=== PATIENT | female | born 1940 | race Caucasian/White ===

== ENCOUNTER → 2016-10-04 | Outpatient (REF) | payer MEDICARE, OTHER, MEDICAID ==
[~2016-10-04] MED LIST: AMLO10TA2 PO; Amlodipine Besylate PO; DRIS50002 PO; FURO40TA2 PO; GLIP5TAB8 PO; GUAI20TA PO; INSULANT SC; LOVA10TA PO; METO50TA2 PO; NEUR100C PO; NORC5TAB PO; ROCA0.25 PO; TESS100C PO
[2016-10-04 14:01] LABS: BASO % 0.4 % (0.0-1.0); EOS # 0.2 K/mm3 (0.0-0.50); LARGE UNSTAINED CELL # 0.2 K/mm3 (0.0-0.4); LARGE UNSTAINED CELL % 3.1 % (0.0-4.0); LYMPH # 1.9 K/mm3 (1.5-4.5); LYMPH % 31.4 % (24.0-44.0); MEAN CORPUSCULAR HEMOGLOBIN 29.6 pg (27.0-33.0); MEAN CORPUSCULAR HGB CONC 31.8 g/dl (32.0-36.5); MEAN CORPUSCULAR VOLUME 93.1 fl (80.0-96.0); MONO # 0.3 K/mm3 (0.0-0.8); MONO % 5.4 % (0.0-5.0); NEUTROPHILS # 3.4 K/mm3 (1.8-7.7); NEUTROPHILS % 56.7 % (36.0-66.0); PLATELET COUNT, AUTOMATED 220 k/mm3 (150-450); RED CELL DISTRIBUTION WIDTH 12.6 % (11.5-14.5); WHITE BLOOD COUNT 6.1 K/mm3 (4.0-10.0)
[2016-10-04 14:28] LABS: ALBUMIN 3.4 GM/DL (3.2-5.2); ALBUMIN/GLOBULIN RATIO 1.06 (1.00-1.93); BILIRUBIN,TOTAL 0.4 MG/DL (0.2-1.0); CALCIUM LEVEL 8.9 MG/DL (8.8-10.2); CREATININE FOR GFR 2.8 MG/DL (0.55-1.02); GLOMERULAR FILTRATION RATE 17.6 (>39); POTASSIUM SERUM 4.7 MEQ/L (3.5-5.1); TOTAL PROTEIN 6.6 GM/DL (6.4-8.2)
== END ==
LOC: M LABSMT 13:05
PROVIDERS: ATTEND Family Medicine
DX: E11.22 Type 2 diabetes mellitus with diabetic chronic kidney disease (principal); E78.5 Hyperlipidemia, unspecified; N18.4 Chronic kidney disease, stage 4 (severe); I12.9 Hypertensive chronic kidney disease with stage 1 through stage 4 chronic kidney disease, or unspecified chronic kidney disease

== ENCOUNTER → 2016-10-14 | Outpatient (CLI) | payer MEDICARE, OTHER, MEDICAID | LOC: M RAD 14:08 | PROVIDERS: ATTEND Physician Assistant | DX: Z00.00 Encounter for general adult medical examination without abnormal findings (principal); Z53.8 Procedure and treatment not carried out for other reasons ==

== ENCOUNTER → 2016-10-28 | Outpatient (CLI) | payer MEDICARE, OTHER, MEDICAID ==
--- NOTE | 2016-10-28 10:38 | REP ---
DUPLEX CAROTID SONOGRAPHY: HISTORY: Hypertension. Right hand tingling. Signs and symptoms involving the circulatory and respiratory system. FINDINGS: The vertebral arteries could not be identified, thus flow cannot be confirmed in the vertebral arteries. The exam is quite limited due to patient body habitus and high carotid bifurcation. Respiratory motion with a factor. RIGHT CAROTID: The right common carotid artery shows some mild mixed plaquing distally. There is almost circumferential plaquing in the bulb, proximal ICA and proximal ECA on the right side. Color flow and spectral Doppler interrogation shows no abnormal wave form or velocity. Velocity Chart Right Carotid: PSV EDV Right CCA 111 cm/s Right ICA 15 cm/s 6 cm/s Right ECA 97 cm/s Right ICA/CCA ratio normal 0.13. Right ICA velocities are felt to be spuriously low due to technical difficulties described above and less than optimal vessel angle. LEFT CAROTID: There is mild to moderate diffuse plaquing in the distal common carotid artery, bulb, ICA and ECA. Color flow and spectral Doppler interrogation are similar to the right side including the relatively spurious low flow velocities seen in the ICA. Velocity Chart Left Carotid: PSV EDV Left CCA 128 cm/s Left ICA 17 cm/s 6 cm/s Left ECA 192 cm/s Left ICA/CCA ratio 0.13. IMPRESSION: Technically limited study. Neither vertebral artery could be documented. There is mild to moderate mixed plaquing bilaterally. Doppler data less than optimal. No evidence of high-grade stenosis on either side. Signed by Miguel A Fisher MD 10/28/2016 01:30 P
--- NOTE | 2016-10-28 11:25 | REP ---
ABDOMINAL AORTIC SONOGRAPHY: HISTORY: Abnormal findings on medical exam. Comparison CT study of the abdomen and pelvis is from October 22, 2014. FINDINGS: Exam quality is inhibited by patient body habitus and overlying bowel gas to some degree. The abdominal aorta, however, is not aneurysmal measuring 1.9 x 2.2 cm in AP x transverse dimension at the diaphragmatic hiatus. The aorta tapers to 1.8 cm AP x 2.7 cm medial to lateral at the distal aorta. The right and left common iliac arteries are normal measuring 0.96 and 0.93 cm in AP dimension respectively. No aortic aneurysm or periaortic disease is seen. IMPRESSION: No evidence of abdominal aortic aneurysm seen. Signed by Miguel A Fisher MD 10/28/2016 01:30 P
== END ==
LOC: M RAD 07:36
PROVIDERS: ATTEND Physician Assistant
DX: Z00.00 Encounter for general adult medical examination without abnormal findings (principal); R09.89 Other specified symptoms and signs involving the circulatory and respiratory systems

== ENCOUNTER → 2017-01-04 | Outpatient (CLI) | payer MEDICARE, OTHER, MEDICAID ==
[~2017-01-04] MED LIST changes: +NORC1TAB4 PO; -NORC5TAB PO
[2017-01-04 13:51] LABS: BASO % 0.4 % (0.0-1.0); EOS # 0.2 K/mm3 (0.0-0.50); EOS % 3.8 % (0.0-3.0); LARGE UNSTAINED CELL # 0.1 K/mm3 (0.0-0.4); LARGE UNSTAINED CELL % 2.2 % (0.0-4.0); LYMPH # 1.6 K/mm3 (1.5-4.5); LYMPH % 26.8 % (24.0-44.0); MEAN CORPUSCULAR HEMOGLOBIN 31.1 pg (27.0-33.0); MEAN CORPUSCULAR HGB CONC 32.9 g/dl (32.0-36.5); MEAN CORPUSCULAR VOLUME 94.4 fl (80.0-96.0); MONO # 0.3 K/mm3 (0.0-0.8); MONO % 5.4 % (0.0-5.0); NEUTROPHILS # 3.6 K/mm3 (1.8-7.7); NEUTROPHILS % 61.4 % (36.0-66.0); PLATELET COUNT, AUTOMATED 188 k/mm3 (150-450); RED CELL DISTRIBUTION WIDTH 13.3 % (11.5-14.5); WHITE BLOOD COUNT 5.8 K/mm3 (4.0-10.0)
[2017-01-04 13:59] LABS: ALBUMIN 3.5 GM/DL (3.2-5.2); ALBUMIN/GLOBULIN RATIO 1.13 (1.00-1.93); BILIRUBIN,TOTAL 0.4 MG/DL (0.2-1.0); CALCIUM LEVEL 8.8 MG/DL (8.8-10.2); CREATININE FOR GFR 2.29 MG/DL (0.55-1.02); FREE T4 1.39 NG/DL (0.76-1.46); GLOMERULAR FILTRATION RATE 22.1 (>39); POTASSIUM SERUM 4.7 MEQ/L (3.5-5.1); TOTAL PROTEIN 6.6 GM/DL (6.4-8.2)
== END ==
LOC: M SMT 09:23
PROVIDERS: ATTEND Physician Assistant
DX: I10 Essential (primary) hypertension (principal); E11.9 Type 2 diabetes mellitus without complications

== ENCOUNTER → 2017-02-10 | Outpatient (REF) | payer MEDICARE, OTHER, MEDICAID | LOC: M LAB REF 12:54 | PROVIDERS: ATTEND Internal Medicine Nephrology | DX: N39.0 Urinary tract infection, site not specified (principal) ==

== ENCOUNTER → 2017-04-13 | Outpatient (CLI) | payer MEDICARE, OTHER, MEDICAID ==
[~2017-04-13] MED LIST changes: -METO50TA2 PO; +METO50TA7 PO
[2017-04-13 13:49] LABS: ALBUMIN 3.3 GM/DL (3.2-5.2); ALBUMIN/GLOBULIN RATIO 1.03 (1.00-1.93); BILIRUBIN,TOTAL 0.4 MG/DL (0.2-1.0); CALCIUM LEVEL 8.9 MG/DL (8.8-10.2); CREATININE FOR GFR 2.74 MG/DL (0.55-1.02); POTASSIUM SERUM 4.5 MEQ/L (3.5-5.1); TOTAL PROTEIN 6.5 GM/DL (6.4-8.2)
[2017-04-13 14:00] LABS: BASO % 0.6 % (0.0-1.0); EOS # 0.2 K/mm3 (0.0-0.50); EOS % 2.9 % (0.0-3.0); LARGE UNSTAINED CELL # 0.1 K/mm3 (0.0-0.4); LARGE UNSTAINED CELL % 2.4 % (0.0-4.0); LYMPH # 1.7 K/mm3 (1.5-4.5); LYMPH % 29.3 % (24.0-44.0); MEAN CORPUSCULAR HEMOGLOBIN 31.1 pg (27.0-33.0); MEAN CORPUSCULAR HGB CONC 33.3 g/dl (32.0-36.5); MEAN CORPUSCULAR VOLUME 93.4 fl (80.0-96.0); MONO # 0.3 K/mm3 (0.0-0.8); MONO % 5.3 % (0.0-5.0); NEUTROPHILS # 3.5 K/mm3 (1.8-7.7); NEUTROPHILS % 59.4 % (36.0-66.0); PLATELET COUNT, AUTOMATED 184 k/mm3 (150-450); RED CELL DISTRIBUTION WIDTH 13.2 % (11.5-14.5); WHITE BLOOD COUNT 5.9 K/mm3 (4.0-10.0)
== END ==
LOC: M SMT 08:31
PROVIDERS: ATTEND Family Medicine
DX: E11.22 Type 2 diabetes mellitus with diabetic chronic kidney disease (principal)

== ENCOUNTER → 2017-07-11 | Outpatient (CLI) | payer MEDICARE, OTHER, MEDICAID ==
[2017-07-11 14:05] LABS: BASO % 0.4 % (0.0-1.0); EOS # 0.2 10^3/uL (0.0-0.50); IMMATURE GRANULOCYTE % 0.3 % (0-0); LYMPH # 2.2 10^3/uL (1.5-4.5); LYMPH % 29.3 % (24.0-44.0); MEAN CORPUSCULAR HEMOGLOBIN 30.9 pg (27.0-33.0); MEAN CORPUSCULAR HGB CONC 32.2 g/dl (32.0-36.5); MEAN CORPUSCULAR VOLUME 96.2 fl (80.0-96.0); MONO # 0.5 10^3/uL (0.0-0.8); MONO % 7.3 % (0.0-5.0); NEUTROPHILS # 4.4 10^3/uL (1.8-7.7); NEUTROPHILS % 59.7 % (36.0-66.0); PLATELET COUNT, AUTOMATED 222 10^3/uL (150-450); RED CELL DISTRIBUTION WIDTH 12.5 % (11.5-14.5); WHITE BLOOD COUNT 7.4 10^3/uL (4.0-10.0)
[2017-07-11 14:41] LABS: ALBUMIN 3.5 GM/DL (3.2-5.2); ALBUMIN/GLOBULIN RATIO 1.06 (1.00-1.93); BILIRUBIN,TOTAL 0.4 MG/DL (0.2-1.0); CALCIUM LEVEL 9.3 MG/DL (8.8-10.2); CREATININE FOR GFR 2.46 MG/DL (0.55-1.02); GLOMERULAR FILTRATION RATE 20.4 (>39); POTASSIUM SERUM 4.2 MEQ/L (3.5-5.1); TOTAL PROTEIN 6.8 GM/DL (6.4-8.2)
== END ==
LOC: M SMT 08:59
PROVIDERS: ATTEND Family Medicine
DX: E11.22 Type 2 diabetes mellitus with diabetic chronic kidney disease (principal); E78.5 Hyperlipidemia, unspecified

== ENCOUNTER → 2017-10-10 | Outpatient (CLI) | payer MEDICARE, OTHER, MEDICAID ==
[2017-10-10 14:30] LABS: ALBUMIN 3.4 GM/DL (3.2-5.2); ALKALINE PHOSPHATASE 57 U/L (45-117); ALT/SGPT 15 U/L (12-78); ANION GAP 10 MEQ/L (8-16); AST/SGOT 13 U/L (7-37); BILIRUBIN,TOTAL 0.4 MG/DL (0.2-1.0); BLOOD UREA NITROGEN 40 MG/DL (7-18); CARBON DIOXIDE LEVEL 29 MEQ/L (21-32); CHLORIDE LEVEL 105 MEQ/L (98-107); CREATININE FOR GFR 2.27 MG/DL (0.55-1.30); GLOMERULAR FILTRATION RATE 22.3 (>39); GLUCOSE, FASTING 85 MG/DL (70-100); POTASSIUM SERUM 4.5 MEQ/L (3.5-5.1); SODIUM LEVEL 144 MEQ/L (136-145); TOTAL PROTEIN 6.5 GM/DL (6.4-8.2)
[2017-10-10 15:06] LABS: ESTIMATED AVERAGE GLUCOSE 146 MG/DL (60-110); HEMOGLOBIN A1c 6.7 %
== END ==
LOC: M SMT 08:03
DX: E11.22 Type 2 diabetes mellitus with diabetic chronic kidney disease (principal)
CPT/HCPCS: 80053

== ENCOUNTER 2017-12-03 11:06 | Emergency (ER) | payer MEDICARE, OTHER, MEDICAID ==
[2017-12-03] MEDS: traMADol 50 MG TAB PO (11:53)
[2017-12-03 12:15] LABS: BASO % 0.2 % (0.0-1.0); EOS # 0.2 10^3/uL (0.0-0.50); EOS % 2.2 % (0.0-3.0); HEMATOCRIT 38.4 % (36.0-47.0); HEMOGLOBIN 12.8 g/dl (12.0-15.5); IMMATURE GRANULOCYTE % 0.5 % (0-3.0); LYMPH # 1.5 10^3/uL (1.5-4.5); LYMPH % 17.6 % (24.0-44.0); MEAN CORPUSCULAR HEMOGLOBIN 30.6 pg (27.0-33.0); MEAN CORPUSCULAR HGB CONC 33.3 g/dl (32.0-36.5); MEAN CORPUSCULAR VOLUME 91.9 fl (80.0-96.0); MONO # 0.8 10^3/uL (0.0-0.8); MONO % 8.7 % (0.0-5.0); NEUTROPHILS # 6.1 10^3/uL (1.8-7.7); NEUTROPHILS % 70.8 % (36.0-66.0); PLATELET COUNT, AUTOMATED 214 10^3/uL (150-450); RED BLOOD COUNT 4.18 10^6/uL (4.00-5.40); WHITE BLOOD COUNT 8.6 10^3/uL (4.0-10.0)
[2017-12-03 12:44] LABS: ANION GAP 8 MEQ/L (8-16); BLOOD UREA NITROGEN 51 MG/DL (7-18); C REACTIVE PROTEIN QUANTITATIV 1.69 MG/DL (0.00-0.30); CALCIUM LEVEL 8.5 MG/DL (8.8-10.2); CARBON DIOXIDE LEVEL 25 MEQ/L (21-32); CHLORIDE LEVEL 108 MEQ/L (98-107); CREATININE FOR GFR 2.28 MG/DL (0.55-1.30); GLOMERULAR FILTRATION RATE 22.2 (>39); GLUCOSE, FASTING 129 MG/DL (70-100); POTASSIUM SERUM 4.2 MEQ/L (3.5-5.1); SODIUM LEVEL 141 MEQ/L (136-145); URIC ACID 10.2 MG/DL (2.6-6.0)
[2017-12-03 13:16] LABS: ERYTHROCYTE SEDIMENTATION RATE 53 mm/hr (0-30)
[2017-12-03] MEDS: COLCHICINE 0.6 MG TAB PO ×2 (13:45→13:46)
== END 2017-12-03 13:48 | disposition home or self-care (01) ==
LOC: M ED 11:06
DX: M10.072 Idiopathic gout, left ankle and foot (principal); I12.9 Hypertensive chronic kidney disease with stage 1 through stage 4 chronic kidney disease, or unspecified chronic kidney disease; E11.9 Type 2 diabetes mellitus without complications; E78.00 Pure hypercholesterolemia, unspecified; N18.9 Chronic kidney disease, unspecified; M54.5 Low back pain; Z87.442 Personal history of urinary calculi; Z79.899 Other long term (current) drug therapy; Z79.4 Long term (current) use of insulin
CPT/HCPCS: 73630

== ENCOUNTER → 2018-03-21 | Outpatient (REF) | payer MEDICARE, OTHER ==
[2018-03-21 14:17] LABS: ALBUMIN 3.3 GM/DL (3.2-5.2); ALBUMIN/GLOBULIN RATIO 0.92 (1.00-1.93); ALKALINE PHOSPHATASE 75 U/L (45-117); ALT/SGPT 24 U/L (12-78); ANION GAP 9 MEQ/L (8-16); AST/SGOT 16 U/L (7-37); BILIRUBIN,TOTAL 0.3 MG/DL (0.2-1.0); BLOOD UREA NITROGEN 52 MG/DL (7-18); CALCIUM LEVEL 8.9 MG/DL (8.8-10.2); CARBON DIOXIDE LEVEL 28 MEQ/L (21-32); CHLORIDE LEVEL 105 MEQ/L (98-107); CHOLESTEROL LEVEL 189 MG/DL (<200); CREATININE FOR GFR 2.57 MG/DL (0.55-1.30); FREE T4 1.22 NG/DL (0.76-1.46); GLOMERULAR FILTRATION RATE 19.3 (>39); GLUCOSE, FASTING 123 MG/DL (70-100); HDL CHOLESTEROL 54 MG/DL (>40); LDL CHOLESTEROL 104.2 MG/DL (<100); NON-HDL-C 135 MG/DL; POTASSIUM SERUM 4.6 MEQ/L (3.5-5.1); SODIUM LEVEL 142 MEQ/L (136-145); TOTAL PROTEIN 6.9 GM/DL (6.4-8.2); TRIGLYCERIDES LEVEL 154 MG/DL (<150)
[2018-03-21 14:31] LABS: ESTIMATED AVERAGE GLUCOSE 194 MG/DL (60-110); HEMOGLOBIN A1c 8.4 %
== END ==
LOC: M LABSMT 13:21
DX: N18.4 Chronic kidney disease, stage 4 (severe) (principal); E78.5 Hyperlipidemia, unspecified; E11.22 Type 2 diabetes mellitus with diabetic chronic kidney disease
CPT/HCPCS: 84443

== ENCOUNTER → 2018-03-22 | Outpatient (CLI) | payer MEDICARE, OTHER, MEDICAID | LOC: M RAD 13:03 | DX: Z01.818 Encounter for other preprocedural examination (principal); N18.6 End stage renal disease | CPT/HCPCS: G0365 ==

== ENCOUNTER 2018-05-11 11:33 | Day surgery (SDC) | payer MEDICARE, OTHER, MEDICAID ==
[2018-05-11 12:42] LABS: BEDSIDE GLUCOSE 157 MG/DL (83-110)
[2018-05-11 12:59] LABS: POTASSIUM SERUM 4.3 MEQ/L (3.5-5.1)
[2018-05-11] MEDS ORDERED: PROPOFOL 200 MG/20 ML VIAL As Ordered (13:04)
[2018-05-11] MEDS ORDERED: LIDOCAINE 2% INJ 100 MG/5 ML SDV (FOR ANES.) As Ordered (13:04)
[2018-05-11] MEDS ORDERED: MIDAZOLAM INJ 2 MG/2 ML VIAL (J2250) As Ordered (14:50)
[2018-05-11] MEDS ORDERED: fentaNYL 100 MCG/2 ML INJECTION (J3010) As Ordered (14:51)
[2018-05-11] MEDS: HEPARIN SOD (PORCINE) 5000 UNITS/ML VIAL As Ordered (16:00)
[2018-05-11] MEDS ORDERED: HEPARIN SOD (PORCINE) 5000 UNITS/ML VIAL As Ordered (16:18)
[2018-05-11] MEDS: BUPIVACAINE HCL 0.5% 30 ML VIAL As Ordered (17:00)
[2018-05-11] MEDS: LIDOCAINE 1% SDV INJ 30 ML VIAL As Ordered (17:00)
[2018-05-11] MEDS ORDERED: D5W/0.2% SODIUM CHLORIDE 1,000 ML IV (18:00)
[2018-05-11] MEDS ORDERED: fentaNYL 100 MCG/2 ML INJECTION (J3010) IV (18:15)
[2018-05-11] MEDS ORDERED: HYDROMORPHONE HCL 0.5 MG/ 0.5 ML SYRINGE (J1170 PER 1) IV (18:15)
[2018-05-11] MEDS ORDERED: ONDANSETRON 4MG/2ML VIAL (J2405) IV (18:15)
[2018-05-11 18:22] LABS: BEDSIDE GLUCOSE 176 MG/DL (83-110)
[2018-05-11] MEDS: PERCOCET 5MG/325MG TAB PO (18:30)
== END 2018-05-11 19:43 | disposition home or self-care (01) ==
LOC: M SDC 11:33
DX: N18.9 Chronic kidney disease, unspecified (principal); I12.9 Hypertensive chronic kidney disease with stage 1 through stage 4 chronic kidney disease, or unspecified chronic kidney disease; I50.32 Chronic diastolic (congestive) heart failure; J44.9 Chronic obstructive pulmonary disease, unspecified; E11.22 Type 2 diabetes mellitus with diabetic chronic kidney disease; E78.00 Pure hypercholesterolemia, unspecified; M10.9 Gout, unspecified; R29.898 Other symptoms and signs involving the musculoskeletal system; M12.9 Arthropathy, unspecified; R06.02 Shortness of breath; R32 Unspecified urinary incontinence; T88.59XD Other complications of anesthesia, subsequent encounter; Z79.899 Other long term (current) drug therapy; Z78.0 Asymptomatic menopausal state; Z98.51 Tubal ligation status; Z87.442 Personal history of urinary calculi; Z96.1 Presence of intraocular lens
CPT/HCPCS: 36821

== ENCOUNTER → 2018-05-24 | Outpatient (CLI) | payer MEDICARE, OTHER, MEDICAID | LOC: M RAD 11:25 | DX: I65.23 Occlusion and stenosis of bilateral carotid arteries (principal) | CPT/HCPCS: 93880 ==

== ENCOUNTER → 2018-07-24 | Outpatient (REF) | payer MEDICARE, OTHER, MEDICAID | LOC: M LAB REF 17:19 | DX: N39.0 Urinary tract infection, site not specified (principal) | CPT/HCPCS: 87186 ==

== ENCOUNTER → 2019-01-05 | Outpatient (CLI) | payer MEDICARE, OTHER, MEDICAID ==
[~2019-01-05] MED LIST changes: +ALLO100T PO; -AMLO10TA2 PO; +AMLO10TA5 PO; +COLA100C5 PO; -DRIS50002 PO; +DRIS50003 PO; +FISH1000 PO; +FISH100049 PO; +GUAI400T9 PO; +HYDR10TAB PO; +MUPI2OI EXT; -NORC1TAB4 PO; +NORC1TAB7 PO; +TYLE500T78 PO; +ULTR50TA8 PO
--- NOTE | 2019-01-05 18:30 | REP ---
Bilateral upper extremity arterial and venous Doppler ultrasound: History: End-stage renal disease. Vein mapping study. Findings: There is no evidence of venous thrombosis in either upper extremity on compression and Doppler ultrasound. There is a fistula between the brachial artery in the left axillary vein. This appears to be occluded. There is evidence of a left distal brachial masses, high-grade. This has associated with a reversal of flow in the ulnar artery. Right upper extremity vein diameter chart: Upper humerus basilic 3.1 mm, cephalic 2.6 mm Mid humerus basilic 3.2 mm, cephalic 2.7 mm Lower humerus basilic 2.6 mm, cephalic 2.9 mm Upper forearm basilic 1.4 mm, cephalic 1.3 mm Lower to mid forearm basilic 1.8 mm, cephalic 1.2 mm Wrist basilic not seen, cephalic 1.3 mm Median cubital 2 mm Left upper extremity vein diameter chart: Upper humerus basilic 2.8 mm, cephalic 1.7 mm Mid humerus basilic 2.5 mm, cephalic and millimeters Lower humerus basilic 1.8 mm cephalic not seen Upper forearm basilic 1.2 mm cephalic not seen Mid forearm basilic 1.3 mm, cephalic not seen Wrist basilic 0.6 mm, cephalic not seen Right upper extremity arterial Doppler velocity and size diameter chart: Axillary artery 71.6 cm/S, 5.5 mm Brachial artery 60.2 cm/S, 4.0 mm Radial artery 89.6 cm/S, 2.1 mm Ulnar artery 57.9 cm/S, 3.2 mm Left upper extremity arterial Doppler velocity and size diameter chart: Axillary artery 32 0.1 cm/S, 5.2 mm Brachial artery 38.5 cm/S, 4.0 mm Radial artery 21.5 cm/S, 2.3 mm Ulnar artery 12.0 cm/S, 2.4 mm reversed flow. Electronically Signed by Miguel A Fisher MD 01/05/2019 06:22 P
== END ==
LOC: M RAD 13:10
PROVIDERS: ATTEND Surgery Vascular Surgery
DX: Z01.818 Encounter for other preprocedural examination (principal); N18.6 End stage renal disease

== ENCOUNTER 2019-01-20 08:08 | Emergency (ER) | payer MEDICARE, OTHER, MEDICAID ==
[~2019-01-20] VITALS: Ht 149.9 cm; Wt 112.1 kg
[2019-01-20 09:17] LABS: BASO % 0.3 % (0.0-1.0); EOS # 0.2 10^3/uL (0.0-0.50); EOS % 3.4 % (0.0-3.0); HEMATOCRIT 38.8 % (36.0-47.0); HEMOGLOBIN 12.8 g/dl (12.0-15.5); LYMPH # 1.9 10^3/uL (1.5-4.5); LYMPH % 28.6 % (24.0-44.0); MEAN CORPUSCULAR HEMOGLOBIN 32.5 pg (27.0-33.0); MEAN CORPUSCULAR VOLUME 98.5 fl (80.0-96.0); MONO # 0.6 10^3/uL (0.0-0.8); MONO % 8.4 % (0.0-5.0); PLATELET COUNT, AUTOMATED 190 10^3/uL (150-450); RED BLOOD COUNT 3.94 10^6/uL (4.00-5.40); WHITE BLOOD COUNT 6.8 10^3/uL (4.0-10.0)
[2019-01-20 09:40] LABS: CALCIUM LEVEL 8.9 MG/DL (8.8-10.2); CREATININE FOR GFR 2.42 MG/DL (0.55-1.30); GLOMERULAR FILTRATION RATE 20.6 (>39); POTASSIUM SERUM 4.4 MEQ/L (3.5-5.1)
--- NOTE | 2019-01-20 10:27 | REP ---
Clinical: Status post fistula placement . Technique: Garcia scale and color Doppler evaluation using linear high frequency transducer. Findings: Ultrasound examination of the right upper extremity including visualized jugular, subclavian, axillary, brachial, cephalic, and basilic veins demonstrate normal flow and wave patterns. There is no evidence for deep venous thrombosis. Impression: No evidence for deep venous thrombosis involving the right upper extremity. . Electronically Signed by Joe Prescott MD 01/20/2019 10:19 A
--- NOTE | 2019-01-20 10:51 | REP ---
Clinical: Status post AV fistula day one right hand weakness/numbness. Technique: Real time garcia scale and color Doppler evaluation of the right upper extremity arterial vasculature using linear high frequency transducer. Findings: Garcia scale and color images demonstrate normal laminar flow through the poarch visualized subclavian, axillary, and brachial arteries with monophasic arterial wave patterns and relatively normal velocities. The AV fistula between brachial artery and cephalic vein demonstrates turbulent flow with increased velocities and spectral broadening with normal laminar flow in the distal cephalic vein demonstrating appropriate venous wave patterns and flow direction. The arterial structures distal to the fistula including radial and ulnar arteries demonstrate monophasic wave patterns with loss of diastolic flow and significantly decreased velocities which may reflect steal syndrome versus transient postoperative changes. Peak systolic velocities (cm/sec) RIGHT Right subclavian artery 129 cm/sec Axillary artery 181 cm/sec Brachial artery 227 cm/sec Brachial cephalic AV fistula Brachial anastomoses 594 cm/sec Mid fistula 552 cm/sec Cephalic anastomoses 410 cm/sec Radial artery 23 cm/sec Ulnar artery 15 cm/sec Impression: Findings detailed above. Decreased velocity with lack of diastolic flow in the radial and ulnar arteries distal to the level of the fistula. Differential diagnosis would include steal syndrome as well as transient postoperative changes. Electronically Signed by Joe Prescott MD 01/20/2019 10:42 A
[2019-01-20 11:31] VITALS: BP 95/53
--- NOTE | 2019-01-21 06:36 | ED PDOC ---
Post-Departure Follow-Up osmin figueroa, and oracio faxed formal report of rue arterial study for Christal Richardson MD January 21, 2019 06:36
== END 2019-01-20 11:32 | disposition home or self-care (01) ==
LOC: M ED 08:08
DX: T82.590A Other mechanical complication of surgically created arteriovenous fistula, initial encounter (principal); Y73.2 Prosthetic and other implants, materials and accessory gastroenterology and urology devices associated with adverse incidents; R20.0 Anesthesia of skin; R20.2 Paresthesia of skin; I77.0 Arteriovenous fistula, acquired; N18.9 Chronic kidney disease, unspecified; E11.29 Type 2 diabetes mellitus with other diabetic kidney complication; I12.9 Hypertensive chronic kidney disease with stage 1 through stage 4 chronic kidney disease, or unspecified chronic kidney disease; Z79.899 Other long term (current) drug therapy; Z79.4 Long term (current) use of insulin

== ENCOUNTER → 2019-01-26 | Outpatient (REF) | payer MEDICARE, OTHER, MEDICAID | LOC: M LAB REF 13:08 | PROVIDERS: ATTEND Internal Medicine Nephrology | DX: I95.9 Hypotension, unspecified (principal) ==

== ENCOUNTER 2019-02-04 21:29 | Emergency (ER) | payer MEDICARE, OTHER, MEDICAID ==
[~2019-02-04] VITALS: Ht 149.9 cm; Wt 111.8 kg
[2019-02-04 22:14] LABS: BASO % 0.4 % (0.0-1.0); EOS # 0.3 10^3/uL (0.0-0.50); EOS % 3.8 % (0.0-3.0); HEMATOCRIT 40.1 % (36.0-47.0); LYMPH # 2.4 10^3/uL (1.5-4.5); LYMPH % 31.7 % (24.0-44.0); MEAN CORPUSCULAR HEMOGLOBIN 32.3 pg (27.0-33.0); MEAN CORPUSCULAR HGB CONC 32.4 g/dl (32.0-36.5); MEAN CORPUSCULAR VOLUME 99.8 fl (80.0-96.0); MONO # 0.7 10^3/uL (0.0-0.8); MONO % 9.5 % (0.0-5.0); NEUTROPHILS # 4.2 10^3/uL (1.8-7.7); NEUTROPHILS % 54.3 % (36.0-66.0); RED BLOOD COUNT 4.02 10^6/uL (4.00-5.40); WHITE BLOOD COUNT 7.7 10^3/uL (4.0-10.0)
[2019-02-04] MEDS ORDERED: FUROSEMIDE 100 MG/10 ML VIAL (J1940) IV ONE (23:30)
[2019-02-05 00:09] LABS: CALCIUM LEVEL 8.7 MG/DL (8.8-10.2); CREATININE FOR GFR 2.23 MG/DL (0.55-1.30); GLOMERULAR FILTRATION RATE 22.7 (>39); POTASSIUM SERUM 4.5 MEQ/L (3.5-5.1)
[2019-02-05 00:16] VITALS: BP 107/66
--- NOTE | 2019-02-05 07:09 | ECGEPIP ---
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
== END 2019-02-05 00:23 | disposition home or self-care (01) ==
LOC: M ED 21:29
DX: R03.0 Elevated blood-pressure reading, without diagnosis of hypertension (principal); E11.9 Type 2 diabetes mellitus without complications; I10 Essential (primary) hypertension; E66.01 Morbid (severe) obesity due to excess calories; N18.9 Chronic kidney disease, unspecified; I51.9 Heart disease, unspecified; E78.5 Hyperlipidemia, unspecified; Z79.4 Long term (current) use of insulin; Z79.899 Other long term (current) drug therapy

== ENCOUNTER → 2019-02-14 | Outpatient (CLI) | payer MEDICARE, OTHER, MEDICAID ==
[~2019-02-14] MED LIST changes: +BUPIVACAINE HCL 0.5% 10 ML VIAL As Ordered ONE; +ISOVUE-300 61% 50ML VIAL (Q9967) As Ordered ONE; +LIDOCAINE 2% MDV 20 ML VIAL As Ordered ONE
== END ==
LOC: M IRPRO 09:21
PROVIDERS: ATTEND Surgery Vascular Surgery
DX: N18.6 End stage renal disease (principal); Z53.9 Procedure and treatment not carried out, unspecified reason

== ENCOUNTER → 2019-02-22 | Outpatient (CLI) | payer MEDICARE, OTHER, MEDICAID ==
[~2019-02-22] MED LIST changes: -BUPIVACAINE HCL 0.5% 10 ML VIAL As Ordered ONE; -ISOVUE-300 61% 50ML VIAL (Q9967) As Ordered ONE; -LIDOCAINE 2% MDV 20 ML VIAL As Ordered ONE
--- NOTE | 2019-02-22 09:10 | IPNPDOC ---
Text Note Date of Service The patient was seen on 02/22/19 at 8:45 AM. NOTE Patient is a 78 year old female with chronic renal insufficiency nearing end- stage renal disease who underwent creation of a right brachiocephalic arteriovenous fistula. Patient was scheduled for a fistulogram for possible angioplasty maturation of her right brachiocephalic arteriovenous fistula due to her worsening renal function. At this point the patient is not ready to start hemodialysis and her most recent creatinine was 2.23 with a GFR of 22.7. 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 The fistulogram was postponed due to contrast usage showing the fistulogram which may hasten the need for the patient's need for hemodialysis. As the patient approaches need for hemodialysis a fistulogram were performed at that time but as long as the patient's renal function remains stable and she is not requiring renal replacement therapy immediately we will continue to follow her arteriovenous fistula conservatively. The right brachiocephalic arterial venous fistula shows well-healed incision with a strong thrill with only minimal pulsatility. Patient or nephrology team will contact us as the patient approaches the need for renal replacement therapy via hemodialysis at which point the fistula will be evaluated and possibly undergo angioplasty maturation for use for hemodialysis access. Thank you for allowing me to participate in the care of this patient. Please feel free to call with any questions or concerns. Lei Hsu MD Feb 22, 2019 09:10
== END ==
LOC: M IRPRO 08:16
PROVIDERS: ATTEND Surgery Vascular Surgery
DX: N18.6 End stage renal disease (principal); Z53.09 Procedure and treatment not carried out because of other contraindication